=== PATIENT | male | born 1935 | race Caucasian/White ===

== ENCOUNTER 2017-11-19 10:41 | Inpatient (IN) | payer MEDICARE, BC, OTHER ==
[2017-11-19 12:08] LABS: ADD MAN DIFF? NO
[2017-11-19 12:20] LABS: BASOPHIL # 0.1 10^3/ul (0.0-0.1); BASOPHILS % 0.7 % (0.0-2.0); EOSINOPHILS # 0.2 10^3/ul (0.0-0.5); EOSINOPHILS % 2.2 % (0.0-7.0); HEMATOCRIT 40.8 % (42.0-52.0); HEMOGLOBIN 13.4 g/dl (14.0-18.0); LYMPHOCYTES # 1.2 10^3/ul (0.8-2.9); LYMPHOCYTES % 17.8 % (15.0-51.0); MEAN CORPUSCULAR HEMOGLOBIN 34.7 pg (29.0-33.0); MEAN CORPUSCULAR HGB CONC 32.8 g/dl (32.0-37.0); MEAN CORPUSCULAR VOLUME 105.7 fl (82.0-101.0); MEAN PLATELET VOLUME 10.9 fl (7.4-10.4); MONOCYTE # 0.9 10^3/ul (0.3-0.9); NEUTROPHIL # 4.4 10^3/ul (1.6-7.5); PLATELET COUNT 115 10^3/UL (140-415); POSITIVE DIFF @See below; RED BLOOD COUNT 3.86 10^6/ul (4.70-6.10); RED CELL DISTRIBUTION WIDTH 16.6 % (11.5-14.5)
[2017-11-19 12:20] LABS: WHITE BLOOD COUNT 6.8 10^3/ul (4.8-10.8)
[2017-11-19] MEDS: IPRATROPIUM (NEB) 0.5 MG/2.5 ML AMP INH (12:29)
[2017-11-19] MEDS: ALBUTEROL 0.5% (NEB) 2.5 MG/0.5 ML AMP INH (12:29)
[2017-11-19 12:34] LABS: INR 1.69; PROTIME 20.2 Sec (11.9-14.9); PT RATIO 1.6
[2017-11-19 12:37] LABS: ANION GAP 14 (8-16); BLOOD UREA NITROGEN 22 mg/dl (7-20); CALCIUM 9.1 mg/dl (8.4-10.2); CARBON DIOXIDE 32 mmol/L (21-31); CHLORIDE 96 mmol/L (97-110); CREATININE 0.98 mg/dl (0.61-1.24); GLUCOSE 116 mg/dl (70-220); POTASSIUM 4.3 mmol/L (3.5-5.1); SODIUM 138 mmol/L (135-144)
[2017-11-19] MEDS: METHYLPREDNISOLONE 125 MG INJ IV (12:37)
[2017-11-19 12:46] LABS: B-TYPE NATRIURETIC PEPTIDE 5150 PG/ML (0-450)
[2017-11-19 12:48] LABS: TROPONIN-I 0.035 ng/ml (0.00-0.12)
[2017-11-19] MEDS ORDERED: ACETAMINOPHEN 325 MG TAB PO ×2 (13:00→15:00)
[2017-11-19] MEDS: OSELTAMIVIR 75 MG CAP PO ×3 (13:00→20:15)
[2017-11-19] MEDS ORDERED: ONDANSETRON 4 MG INJ IV ×2 (13:00→15:00)
[2017-11-19] MEDS ORDERED: DEXTROSE 50% 50 ML SYRINGE IV ×2 (15:00)
[2017-11-19] MEDS ORDERED: LORAZEPAM 0.5 MG TAB PO (15:00)
[2017-11-19] MEDS ORDERED: ALBUTEROL/IPRATROPIUM (NEB) 3 ML AMP NEB (15:00)
[2017-11-19] MEDS ORDERED: GLUCOSE GEL 15 GRAM TUBE BUCCAL (15:00)
[2017-11-19] MEDS ORDERED: GLUCOSE GEL 15 GRAM TUBE PO ×2 (15:00)
[2017-11-19] MEDS ORDERED: MAGNESIUM HYDROXIDE 30ML CUP PO (15:00)
[2017-11-19] MEDS ORDERED: GLUCAGON 1 MG INJ IM (15:00)
[2017-11-19] MEDS ORDERED: morphine 2 MG INJ IV (15:00)
[2017-11-19] MEDS ORDERED: NACL 0.9% 3 ML SYG IV (15:00)
[2017-11-19] MEDS ORDERED: WARFARIN 5 MG TAB PO (17:00)
[2017-11-19] MEDS: WARFARIN 5 MG TAB PO (17:37)
[2017-11-19] MEDS: INSULIN ASPART [NOVOLOG] 3 ML PEN SC ×2 (18:14→20:19)
[2017-11-19] MEDS: POTASSIUM CHLORIDE (SR) 20 MEQ TAB PO (20:15)
[2017-11-19] MEDS: ALBUTEROL/IPRATROPIUM (NEB) 3 ML AMP NEB (21:45)
[2017-11-19] MEDS ORDERED: METHYLPREDNISOLONE 125 MG INJ IV (22:00)
[2017-11-20] MEDS: ALBUTEROL/IPRATROPIUM (NEB) 3 ML AMP NEB ×6 (00:36→20:47)
[2017-11-20] MEDS: ACCU-CHEK XX (03:00)
[2017-11-20] MEDS: PANTOPRAZOLE (EC) 40 MG TAB PO (05:31)
[2017-11-20] MEDS: LEVOTHYROXINE 150 MCG TAB PO (06:20)
[2017-11-20] MEDS: METHYLPREDNISOLONE 40 MG INJ IV ×2 (08:51→21:22)
[2017-11-20] MEDS: POTASSIUM CHLORIDE (SR) 20 MEQ TAB PO (08:52)
[2017-11-20] MEDS: OSELTAMIVIR 75 MG CAP PO ×2 (08:53→21:22)
[2017-11-20] MEDS: FUROSEMIDE 40 MG TAB PO (08:53)
[2017-11-20] MEDS: ALLOPURINOL 100 MG TAB PO (08:53)
[2017-11-20] MEDS: INSULIN ASPART [NOVOLOG] 3 ML PEN SC ×4 (08:54→21:00)
[2017-11-20] MEDS ORDERED: WARFARIN 5 MG TAB PO (09:00)
[2017-11-20 09:22] LABS: HEMATOCRIT 42.7 % (42.0-52.0); HEMOGLOBIN 13.6 g/dl (14.0-18.0); MEAN CORPUSCULAR HEMOGLOBIN 34.3 pg (29.0-33.0); MEAN CORPUSCULAR HGB CONC 31.9 g/dl (32.0-37.0); MEAN CORPUSCULAR VOLUME 107.8 fl (82.0-101.0); MEAN PLATELET VOLUME 10.4 fl (7.4-10.4); PLATELET COUNT 122 10^3/UL (140-415); RED BLOOD COUNT 3.96 10^6/ul (4.70-6.10); RED CELL DISTRIBUTION WIDTH 15.9 % (11.5-14.5)
[2017-11-20 09:50] LABS: ALANINE AMINOTRANSFERASE 34 IU/L (13-69); ALBUMIN 3.9 g/dl (3.3-4.9); ALKALINE PHOSPHATASE 84 IU/L (42-121); ANION GAP 16 (8-16); ASPARTATE AMINO TRANSFERASE 38 IU/L (15-46); BILIRUBIN,INDIRECT 0.2 mg/dl (0-1.1); BILIRUBIN,TOTAL 0.2 mg/dl (0.2-1.3); BLOOD UREA NITROGEN 26 mg/dl (7-20); CALCIUM 8.7 mg/dl (8.4-10.2); CARBON DIOXIDE 33 mmol/L (21-31); CHLORIDE 94 mmol/L (97-110); CREATININE 0.97 mg/dl (0.61-1.24); GLUCOSE 160 mg/dl (70-220); MAGNESIUM 1.9 mg/dl (1.7-2.5); POTASSIUM 5.3 mmol/L (3.5-5.1); SODIUM 138 mmol/L (135-144); TOTAL PROTEIN 6.9 g/dl (6.1-8.1)
[2017-11-20 09:53] LABS: ADD MAN DIFF? YES
[2017-11-20 09:57] LABS: INR 1.93; PROTIME 22.5 Sec (11.9-14.9); PT RATIO 1.8
[2017-11-20] MEDS: INFLUENZA VIRUS VACCINE 0.5 ML SYG IM* (10:00)
[2017-11-20 10:49] LABS: ANISOCYTOSIS 1+ (0-0); BAND NEUTROPHILS #M 2.5 10^3/ul (0.0-0.6); BAND NEUTROPHILS % (M) 25 % (0-4); LYMPHOCYTES #M 0.7 10^3/ul (0.8-2.9); LYMPHOCYTES % (M) 7 % (15-51); MONOCYTE #M 0.5 10^3/ul (0.3-0.9); MONOCYTES % (M) 5 % (0-11); PLATELET ESTIMATE DECREASED; SEG NEUT #M 6.6 10^3/ul (1.7-7.5); SEGMENTED NEUTROPHILS (M) % 63 % (39-77); SMUDGE%M 4 % (0-0)
[2017-11-20] MEDS: [UNRECOGNIZED DRUG - REMARK] XX ×2 (11:30→19:26)
[2017-11-20] MEDS: DIGOXIN 0.125 MG TAB PO (12:25)
[2017-11-20] MEDS: WARFARIN 5 MG TAB PO (17:14)
[2017-11-20 17:18] LABS: THYROID STIMULATING HORMONE 0.213 MIU/L (0.465-4.680)
[2017-11-21] MEDS: ALBUTEROL/IPRATROPIUM (NEB) 3 ML AMP NEB ×6 (00:17→21:45)
[2017-11-21] MEDS: ACCU-CHEK XX (01:21)
[2017-11-21] MEDS: [UNRECOGNIZED DRUG - REMARK] XX ×3 (01:22→19:30)
[2017-11-21] MEDS: LEVOTHYROXINE 150 MCG TAB PO (06:44)
[2017-11-21] MEDS: PANTOPRAZOLE (EC) 40 MG TAB PO (06:44)
[2017-11-21 08:00] LABS: ADD MAN DIFF? NO
[2017-11-21 08:05] LABS: WHITE BLOOD COUNT 10.6 10^3/ul (4.8-10.8)
[2017-11-21 08:05] LABS: BASOPHILS % 0.1 % (0.0-2.0); HEMATOCRIT 40.3 % (42.0-52.0); HEMOGLOBIN 13.1 g/dl (14.0-18.0); LYMPHOCYTES # 0.7 10^3/ul (0.8-2.9); LYMPHOCYTES % 6.5 % (15.0-51.0); MEAN CORPUSCULAR HEMOGLOBIN 34.4 pg (29.0-33.0); MEAN CORPUSCULAR HGB CONC 32.5 g/dl (32.0-37.0); MEAN CORPUSCULAR VOLUME 105.8 fl (82.0-101.0); MEAN PLATELET VOLUME 11.4 fl (7.4-10.4); MONOCYTE # 0.4 10^3/ul (0.3-0.9); MONOCYTES % 3.6 % (0.0-11.0); NEUTROPHIL # 9.4 10^3/ul (1.6-7.5); POSITIVE DIFF @See below; RED BLOOD COUNT 3.81 10^6/ul (4.70-6.10); RED CELL DISTRIBUTION WIDTH 15.7 % (11.5-14.5)
[2017-11-21] MEDS: OSELTAMIVIR 75 MG CAP PO ×2 (08:07→20:58)
[2017-11-21] MEDS: ALLOPURINOL 100 MG TAB PO (08:07)
[2017-11-21] MEDS: METHYLPREDNISOLONE 40 MG INJ IV ×2 (08:07→20:58)
[2017-11-21] MEDS: FUROSEMIDE 40 MG TAB PO (08:08)
[2017-11-21] MEDS: INSULIN ASPART [NOVOLOG] 3 ML PEN SC ×4 (08:11→21:03)
[2017-11-21 08:21] LABS: INR 2.62; PROTIME 28.7 Sec (11.9-14.9); PT RATIO 2.2
[2017-11-21 08:31] LABS: MAGNESIUM 1.9 mg/dl (1.7-2.5); URIC ACID 4.9 mg/dl (3.1-7.9)
[2017-11-21 08:31] LABS: PHOSPHORUS 4.4 mg/dl (2.5-4.9)
[2017-11-21 08:33] LABS: ANION GAP 13 (8-16); BLOOD UREA NITROGEN 44 mg/dl (7-20); CALCIUM 8.5 mg/dl (8.4-10.2); CARBON DIOXIDE 36 mmol/L (21-31); CHLORIDE 90 mmol/L (97-110); CREATININE 1.05 mg/dl (0.61-1.24); GLUCOSE 167 mg/dl (70-220); POTASSIUM 4.4 mmol/L (3.5-5.1); SODIUM 135 mmol/L (135-144)
[2017-11-21 08:34] LABS: LACTATE DEHYDROGENASE 497 IU/L (313-618)
[2017-11-21 08:42] LABS: TROPONIN-I 0.028 ng/ml (0.00-0.12)
[2017-11-21 08:45] LABS: PLATELET COUNT 124 10^3/UL (140-415)
[2017-11-21] MEDS ORDERED: INFLUENZA VIRUS VACCINE 0.5 ML SYG IM* (11:30)
[2017-11-21] MEDS: DIGOXIN 0.125 MG TAB PO (14:01)
[2017-11-21] MEDS: WARFARIN 5 MG TAB PO (17:23)
[2017-11-22] MEDS: ALBUTEROL/IPRATROPIUM (NEB) 3 ML AMP NEB ×6 (01:45→20:27)
[2017-11-22] MEDS: ACCU-CHEK XX (02:58)
[2017-11-22] MEDS: [UNRECOGNIZED DRUG - REMARK] XX (02:59)
[2017-11-22] MEDS: PANTOPRAZOLE (EC) 40 MG TAB PO (06:13)
[2017-11-22] MEDS: LEVOTHYROXINE 125 MCG TAB PO (06:14)
[2017-11-22] MEDS: INSULIN ASPART [NOVOLOG] 3 ML PEN SC ×4 (08:23→21:23)
[2017-11-22] MEDS: METHYLPREDNISOLONE 40 MG INJ IV ×2 (08:24→20:58)
[2017-11-22] MEDS: OSELTAMIVIR 75 MG CAP PO ×2 (08:27→20:58)
[2017-11-22] MEDS: ALLOPURINOL 100 MG TAB PO (08:28)
[2017-11-22] MEDS: FUROSEMIDE 40 MG TAB PO (08:28)
[2017-11-22 08:48] LABS: ADD MAN DIFF? NO
[2017-11-22 09:05] LABS: BASOPHILS % 0.2 % (0.0-2.0); HEMATOCRIT 41.3 % (42.0-52.0); HEMOGLOBIN 13.7 g/dl (14.0-18.0); LYMPHOCYTES # 0.7 10^3/ul (0.8-2.9); LYMPHOCYTES % 5.2 % (15.0-51.0); MEAN CORPUSCULAR HEMOGLOBIN 34.9 pg (29.0-33.0); MEAN CORPUSCULAR HGB CONC 33.2 g/dl (32.0-37.0); MEAN CORPUSCULAR VOLUME 105.1 fl (82.0-101.0); MEAN PLATELET VOLUME 11.3 fl (7.4-10.4); MONOCYTE # 0.7 10^3/ul (0.3-0.9); MONOCYTES % 5.6 % (0.0-11.0); NEUTROPHIL # 11.1 10^3/ul (1.6-7.5); NUCLEATED RED BLOOD CELLS% 0.2 /100WBC (0.0-0.0); PLATELET COUNT 120 10^3/UL (140-415); POSITIVE DIFF @See below; RED BLOOD COUNT 3.93 10^6/ul (4.70-6.10); RED CELL DISTRIBUTION WIDTH 15.2 % (11.5-14.5)
[2017-11-22 09:05] LABS: WHITE BLOOD COUNT 12.6 10^3/ul (4.8-10.8)
[2017-11-22 09:24] LABS: INR 3.53; PROTIME 36.5 Sec (11.9-14.9); PT RATIO 2.9
[2017-11-22 09:50] LABS: ALANINE AMINOTRANSFERASE 37 IU/L (13-69); ALBUMIN 3.3 g/dl (3.3-4.9); ALKALINE PHOSPHATASE 77 IU/L (42-121); ANION GAP 8 (8-16); ASPARTATE AMINO TRANSFERASE 38 IU/L (15-46); BLOOD UREA NITROGEN 40 mg/dl (7-20); CALCIUM 8.6 mg/dl (8.4-10.2); CHLORIDE 89 mmol/L (97-110); CREATININE 0.89 mg/dl (0.61-1.24); GLUCOSE 176 mg/dl (70-220); MAGNESIUM 1.9 mg/dl (1.7-2.5); PHOSPHORUS 3.4 mg/dl (2.5-4.9); POTASSIUM 3.8 mmol/L (3.5-5.1); SODIUM 133 mmol/L (135-144); TOTAL PROTEIN 6.6 g/dl (6.1-8.1)
[2017-11-22 09:53] LABS: CARBON DIOXIDE 40 mmol/L (21-31)
[2017-11-22] MEDS: DIGOXIN 0.125 MG TAB PO (15:41)
[2017-11-22] MEDS: LEVOFLOXACIN 500MG/D5W (PMX) 100 ML IVPB (15:45)
[2017-11-22] MEDS: WARFARIN 3 MG TAB PO (17:32)
[2017-11-23] MEDS: ALBUTEROL/IPRATROPIUM (NEB) 3 ML AMP NEB ×6 (00:28→21:37)
[2017-11-23] MEDS: ACCU-CHEK XX (02:20)
[2017-11-23] MEDS: [UNRECOGNIZED DRUG - REMARK] XX (03:30)
[2017-11-23] MEDS: LEVOTHYROXINE 125 MCG TAB PO (06:28)
[2017-11-23] MEDS: PANTOPRAZOLE (EC) 40 MG TAB PO (06:28)
[2017-11-23] MEDS: DOCUSATE SODIUM 100 MG CAP PO (06:28)
[2017-11-23] MEDS: METHYLPREDNISOLONE 40 MG INJ IV ×2 (08:08→20:36)
[2017-11-23] MEDS: OSELTAMIVIR 75 MG CAP PO ×2 (08:09→20:38)
[2017-11-23] MEDS: FUROSEMIDE 40 MG TAB PO (08:09)
[2017-11-23] MEDS: ALLOPURINOL 100 MG TAB PO (08:09)
[2017-11-23 08:10] LABS: HEMATOCRIT 40.4 % (42.0-52.0); HEMOGLOBIN 13.2 g/dl (14.0-18.0); MEAN CORPUSCULAR HEMOGLOBIN 34.5 pg (29.0-33.0); MEAN CORPUSCULAR HGB CONC 32.7 g/dl (32.0-37.0); MEAN CORPUSCULAR VOLUME 105.5 fl (82.0-101.0); MEAN PLATELET VOLUME 11.5 fl (7.4-10.4); PLATELET COUNT 112 10^3/UL (140-415); POSITIVE DIFF @See below; RED BLOOD COUNT 3.83 10^6/ul (4.70-6.10); RED CELL DISTRIBUTION WIDTH 14.9 % (11.5-14.5)
[2017-11-23 08:10] LABS: WHITE BLOOD COUNT 8.9 10^3/ul (4.8-10.8)
[2017-11-23 08:14] LABS: ADD MAN DIFF? YES
[2017-11-23 08:23] LABS: PHOSPHORUS 2.8 mg/dl (2.5-4.9)
[2017-11-23] MEDS: INSULIN ASPART [NOVOLOG] 3 ML PEN SC ×4 (08:26→20:42)
[2017-11-23 08:29] LABS: ALANINE AMINOTRANSFERASE 40 IU/L (13-69); ALBUMIN 3.1 g/dl (3.3-4.9); ALBUMIN/GLOBULIN RATIO 1.06; ALKALINE PHOSPHATASE 65 IU/L (42-121); ASPARTATE AMINO TRANSFERASE 34 IU/L (15-46); BILIRUBIN,INDIRECT 0.1 mg/dl (0-1.1); BILIRUBIN,TOTAL 0.1 mg/dl (0.2-1.3); BLOOD UREA NITROGEN 42 mg/dl (7-20); CALCIUM 8.6 mg/dl (8.4-10.2); CHLORIDE 89 mmol/L (97-110); CREATININE 0.81 mg/dl (0.61-1.24); GLUCOSE 178 mg/dl (70-220); POTASSIUM 4.3 mmol/L (3.5-5.1); SODIUM 133 mmol/L (135-144)
[2017-11-23 08:35] LABS: ANION GAP 8 (8-16)
[2017-11-23 08:36] LABS: CARBON DIOXIDE 40 mmol/L (21-31)
[2017-11-23 08:43] LABS: DIGOXIN 0.7 ng/ml (1.0-2.0)
[2017-11-23] MEDS: LISINOPRIL 5 MG TAB NGT (09:44)
[2017-11-23] MEDS: DIGOXIN 0.125 MG TAB PO (13:38)
[2017-11-23] MEDS: LEVOFLOXACIN 500MG/D5W (PMX) 100 ML IVPB (13:39)
[2017-11-23 14:28] LABS: INR 4.95; PROTIME 47.8 Sec (11.9-14.9); PT RATIO 3.7
[2017-11-24] MEDS: ALBUTEROL/IPRATROPIUM (NEB) 3 ML AMP NEB ×5 (01:21→16:50)
[2017-11-24] MEDS: ACCU-CHEK XX (02:28)
[2017-11-24] MEDS: PANTOPRAZOLE (EC) 40 MG TAB PO (06:12)
[2017-11-24] MEDS: LEVOTHYROXINE 125 MCG TAB PO (06:12)
[2017-11-24] MEDS: DOCUSATE SODIUM 100 MG CAP PO (06:25)
[2017-11-24] MEDS: INSULIN ASPART [NOVOLOG] 3 ML PEN SC ×3 (08:06→17:43)
[2017-11-24 08:20] LABS: INR 4.46; PT RATIO 3.4
[2017-11-24] MEDS: ALLOPURINOL 100 MG TAB PO (08:45)
[2017-11-24] MEDS: FUROSEMIDE 40 MG TAB PO (08:46)
[2017-11-24] MEDS: METHYLPREDNISOLONE 40 MG INJ IV (08:46)
[2017-11-24] MEDS: [UNRECOGNIZED DRUG - REMARK] XX ×4 (08:47→11:51)
[2017-11-24] MEDS: LISINOPRIL 5 MG TAB NGT (08:52)
[2017-11-24] MEDS: LEVOFLOXACIN 500MG/D5W (PMX) 100 ML IVPB (14:51)
[2017-11-25] MEDS ORDERED: DIGOXIN 0.125 MG TAB PO (13:00)
== END 2017-11-24 19:05 | DRG 189 ==
LOC: TEL 11-22 20:27 → E/R 10:41 → MS4 13:02
DX: J96.01 Acute respiratory failure with hypoxia (principal); I47.2 Ventricular tachycardia; I42.9 Cardiomyopathy, unspecified; D69.6 Thrombocytopenia, unspecified; J90 Pleural effusion, not elsewhere classified; E87.5 Hyperkalemia; I48.2 Chronic atrial fibrillation; E11.9 Type 2 diabetes mellitus without complications; D75.89 Other specified diseases of blood and blood-forming organs; I25.10 Atherosclerotic heart disease of native coronary artery without angina pectoris; J10.1 Influenza due to other identified influenza virus with other respiratory manifestations; E03.9 Hypothyroidism, unspecified; E79.0 Hyperuricemia without signs of inflammatory arthritis and tophaceous disease; J40 Bronchitis, not specified as acute or chronic; E78.5 Hyperlipidemia, unspecified; I10 Essential (primary) hypertension; Z95.1 Presence of aortocoronary bypass graft; Z95.2 Presence of prosthetic heart valve; Z79.84 Long term (current) use of oral hypoglycemic drugs; Z79.01 Long term (current) use of anticoagulants; Z87.891 Personal history of nicotine dependence
CPT/HCPCS: 36415; 71045; 80048; 80053; 80162; 82962; 83615; 83735; 83880; 84100; 84443; 84484; 84560; 85025; 85610; 87040; 87081; 87400; 90686; 93005; 93306; 94640; 94644; 94664; 96374; 97163; 99285-25